=== PATIENT | male | born 1965 | race Two or more races ===

== ENCOUNTER 2017-12-27 13:00 | Inpatient (IN) | payer OTHER ==
[2017-12-27 14:33] VITALS: BMI 29.7
--- NOTE | 2017-12-27 15:26 | HP ---
CIWA Score - CIWA Score Nausea/Vomitin Muscle Tremors: 2 Anxiety: 2 Agitation: 1-Slight > Activity Paroxysmal Sweats: No Perspiration Orientation: 2-Disoriented Date<2 days Tacttile Disturbances: 0-None Auditory Disturbances: 0-None Visual Disturbances: 0-None Headache: 3-Moderate CIWA-Ar Total Score: 12 Admission [facility] Chief Complaint: ETOH withdrawal symptoms. Allergies/Adverse Reactions: Allergies Allergy/AdvReac Type Severity Reaction Status Date / Time No Known Allergies Allergy Verified 02/24/15 14:42 History of Present Illness: Patient presents [facility] ETOH withdrawal symptoms. Patient treated for Opiod addiction with Suboxone but patient states he has not taken medication x one month. Last prescription verified in [facility] #[id number] Suboxone 8mg #60. Patient state he only took 1/2 of a percocet last night but denies abusing medication. Patient started drinking x 7 years. States he has been binging on ETOH x 3 days non-stop. Has drank up to 3 pints of Vodka daily. Denies history of seizures. PMH includes depression, anxiety and elevated BP (untreated with daily medication). Denies SI/HI and suicide attempts. Went to [facility] ER 3 days ago and referred to [facility] for treatment. This is patients first time for detox here at [facility]. Exam Limitations: Intoxication - Ebola screening Have you traveled outside of the country in the last 21 days: No Have you had contact with anyone from an Ebola affected area: No Have you been sick,other than usual withdrawal symptoms: No Do you have a fever: No - Review of Systems Constitutional: Night Sweats, Changes in sleep EENT: reports: Blurred Vision (+blurry vision with close vision) Respiratory: reports: No Symptoms reported Cardiac: reports: No Symptoms Reported GI: reports: Diarrhea, Nausea, Poor Fluid Intake, Abdominal cramping : reports: Frequency Musculoskeletal: reports: Back Pain, Joint Pain Integumentary: reports: Erythema, Sweating Neuro: reports: Headache, Tremors Endocrine: reports: Increased Urine Hematology: reports: No Symptoms Reported Psychiatric: reports: Anxious, Depressed Patient History - Patient Medical History Hx Anemia: No Hx Asthma: No Hx Chronic Obstructive Pulmonary Disease (COPD): No Hx Cancer: No Hx Cardiac Disorders: No Hx Congestive Heart Failure: No Hx Hypertension: No Hx Hypercholesterolemia: No Hx Pacemaker: No HX Cerebrovascular Accident: No Hx Seizures: No Hx Dementia: No Hx Diabetes: No Hx Gastrointestinal Disorders: Yes (GERD- ON NEXIUM) Hx Liver Disease: No Hx Genitourinary Disorders: No Hx Sexually Transmitted Disorders: No Hx Renal Disease (ESRD): No Hx Thyroid Disease: No Hx Human Immunodeficiency Virus (HIV): No (NEGATIVE HX) Hx Hepatitis C: No Hx Depression: Yes (ON MEDS) Hx Suicide Attempt: No Hx Bipolar Disorder: No Hx Schizophrenia: No - Patient Surgical History Past Surgical History: No Hx Neurologic Surgery: No Hx Cataract Extraction: No Hx Cardiac Surgery: No Hx Lung Surgery: No Hx Breast Surgery: No Hx Breast Biopsy: No Hx Abdominal Surgery: No Hx Appendectomy: No Hx Cholecystectomy: No Hx Genitourinary Surgery: No Hx Orthopedic Surgery: No Anesthesia Reaction: No - PPD History Documented Results: Negative w/o proof Date: 02/26/15 PPD to be Administered?: Yes - Smoking Cessation Smoking history: Current every day smoker Have you smoked in the past 12 months: Yes Aproximately how many cigarettes per day: 20 Hx Chewing Tobacco Use: No Initiated information on smoking cessation: Yes 'Breaking Loose' booklet given: 12/27/17 - Substance & Tx. History Hx Alcohol Use: Yes Hx Substance Use: No Substance Use Type: Alcohol Hx Substance Use Treatment: Yes - Substances Abused Alcohol Route: Oral Frequency: Daily Amount used: 3 pints Age of first use: 45 Date of Last Use: 12/27/17 Family Disease History - Family Disease History Family Disease History: Diabetes: Grandparent (), Sister (alive ) Admission Physical Exam S - Vital Signs Vital Signs: Vital Signs - 24 hr 12/27/17 14:27 Temperature 97.6 F Pulse Rate 105 H Respiratory 21 Rate Blood Pressure 130/86 - Physical General Appearance: Yes: Appropriately Dressed, Alcohol on Breath, Intoxicated, Tremorous, Sweating, Anxious HEENTM: Yes: EOMI, Hearing grossly Normal, Normal ENT Inspection, Normocephalic , Normal Voice, BENITA, Pharynx Normal Respiratory: Yes: Chest Non-Tender, Lungs Clear, Normal Breath Sounds, No Respiratory Distress, No Accessory Muscle Use Neck: Yes: No masses,lesions,Nodules, Supple Breast: Yes: Breast Exam Deferred Cardiology: Yes: Regular Rhythm, Regular Rate, S1, S2 Abdominal: Yes: Normal Bowel Sounds, Non Tender, Soft Genitourinary: Yes: Frequency Back: Yes: Normal Inspection, Muscle Spasm Musculoskeletal: Yes: full range of Motion, Back pain, Muscle Pain Extremities: Yes: Normal Inspection, Normal Range of Motion, Non-Tender, Tremors , Swelling Neurological: Yes: satellite specialist II-XII NML intact, Alert, Motor Strength 5/5, Depressed Affect Integumentary: Yes: Warm, Erythema, Moist Lymphatic: Yes: Within Normal Limits - Diagnostic (1) Depressed affect Current Visit: Yes Status: Suspected (2) Anxiety Current Visit: Yes Status: Suspected (3) Alcohol dependence with uncomplicated withdrawal Current Visit: Yes Status: Acute (4) Nicotine dependence Current Visit: Yes Status: Chronic Qualifiers: Nicotine product type: cigarettes Substance use status: uncomplicated Qualified Code(s): F17.210 - Nicotine dependence, cigarettes, uncomplicated Cleared for Admission [facility] - Detox or Rehab [facility] Level of Care: Medically Managed Detox Regimen/Protocol: Librium [facility] Breath Alcohol Content Breath Alcohol Content: 0.135 Urine Drug Screen - Results Drug Screen Negative: No Urine Drug Screen Results: BZO-Benzodiazepines, OXY-Oxycodone
[2017-12-27] MEDS ORDERED: MAGNESIUM HYDROX 2400MG/30ML ORAL SUSPENSION 30 ML CUP PO PRN (15:34)
[2017-12-27] MEDS ORDERED: NICOTINE POLACRILEX 2 MG GUM BC PRN (15:34)
[2017-12-27] MEDS ORDERED: ACETAMINOPHEN 325 MG TABLET (FP) PO PRN (15:34)
[2017-12-27] MEDS ORDERED: LOPERAMIDE HCL 2 MG CAPSULE PO PRN (15:34)
[2017-12-27] MEDS ORDERED: MAGNESIUM CITRATE 300 ML BOTTLE PO PRN (15:34)
[2017-12-27] MEDS ORDERED: MENTHOL/PHENOL 1 EACH UD MM PRN (15:34)
[2017-12-27] MEDS ORDERED: IBUPROFEN 400 MG TABLET (FP) PO PRN (15:34)
[2017-12-27] MEDS ORDERED: MAG HYDROX/AL HYDROX/SIMETH 30 ML UNIT-DOSE CUP PO PRN (15:34)
[2017-12-27] MEDS ORDERED: guaiFENesin/D-METHORPHAN HB 10 ML UNIT-DOSE CUPS PO PRN (15:34)
[2017-12-27] MEDS ORDERED: hydrOXYzine PAMOATE 25 MG CAPSULE (FP) PO PRN (15:34)
[2017-12-27] MEDS ORDERED: P-EPHED 60MG/TRIPROLIDI 2.5MG TABLET PO PRN (15:34)
[2017-12-27] MEDS ORDERED: chlordiazePOXIDE HCL 25 MG CAPSULE PO PRN (15:36)
[2017-12-27] MEDS ORDERED: MELATONIN 5 MG TABLETS PO PRN (22:00)
[2017-12-27] MEDS: chlordiazePOXIDE HCL 25 MG CAPSULE PO SCH ×2 (22:28)
[2017-12-27] MEDS: THIAMINE HCL 100 MG TABLET (FP) PO SCH (22:28)
[2017-12-28 03:38] LABS: URINE APPEARANCE CLEAR; URINE BILIRUBIN NEGATIVE (<2.0 mg/dL); URINE COLOR STRAW; URINE GLUCOSE (UA) NEGATIVE (NEGATIVE); URINE KETONE NEGATIVE (NEGATIVE); URINE LEUK ESTERASE TRACE (NEGATIVE); URINE NITRITE NEGATIVE (NEGATIVE); URINE PROTEIN NEGATIVE (NEGATIVE); URINE UROBILINOGEN NEGATIVE mg/dL (0.2-1.0)
[2017-12-28 03:41] LABS: EPI CELLS RARE /HPF (FEW)
[2017-12-28] MEDS: chlordiazePOXIDE HCL 25 MG CAPSULE PO SCH ×4 (05:52→22:11)
[2017-12-28] MEDS: NICOTINE 21 MG/24 HOURS TOPICAL PATCH TD SCH (10:10)
[2017-12-28] MEDS: PRENATAL VITAMINS W/ FOLIC ACID TABLET (FP) PO SCH (10:10)
[2017-12-28 10:14] LABS: HEMOGLOBIN 15.2 GM/dL (11.7-16.9); MCH 30.3 pg (25.7-33.7); MCHC 33.1 g/dl (32.0-35.9); MEAN CELL VOLUME 91.4 fl (80-96); MEAN PLT VOLUME 9.2 fl (7.5-11.1); PLATELET COUNT 263 K/MM3 (134-434); RBC 5.03 M/mm3 (4.00-5.60); RDW 14.3 % (11.9-15.9); WHITE BLOOD COUNT 5.3 K/mm3 (4.0-10.0)
[2017-12-28 10:43] LABS: ALBUMIN 3.6 g/dl (3.4-5.0); ALK PHOS 66 U/L (45-117); ANION GAP 9 MMOL/L (8-16); BILIRUBIN,TOTAL 0.8 mg/dL (0.2-1); BLOOD UREA NITROGEN 11 mg/dL (7-18); CALCIUM 8.7 mg/dL (8.5-10.1); CHLORIDE 103 mmol/L (98-107); CO2 28 mmol/L (21-32); CREATININE 0.8 mg/dL (0.55-1.3); GLUCOSE,RANDOM 88 mg/dL (74-106); POTASSIUM 4.6 mmol/L (3.5-5.1); SGOT/AST 25 U/L (15-37); SGPT/ALT 41 U/L (13-61); SODIUM 141 mmol/L (136-145); TOT PROT 7.2 g/dl (6.4-8.2)
--- NOTE | 2017-12-28 12:09 | EKG ---
Test Reason : Blood Pressure : / mmHG Vent. Rate : 087 BPM Atrial Rate : 087 BPM P-R Int : 158 ms QRS Dur : 074 ms QT Int : 376 ms P-R-T Axes : 037 -02 025 degrees QTc Int : 452 ms NORMAL SINUS RHYTHM NORMAL ECG NO PREVIOUS ECGS AVAILABLE Confirmed by CHRISSY NEAL, ILSA ([id number]) on 12/28/2017 12:09:25 PM Referred By: Confirmed By:ILSA LOWE MD
--- NOTE | 2017-12-28 12:17 | CONSULT ---
[facility] Psychiatric Consult - Data Date of interview: 12/28/17 Admission source: [facility] Identifying data: Patient is a 52 year old single male, without children, unemployed, homeless, and is supported by food stamps. This is one of multiple admissions for patient. Pt. admitted to for alcohol dependence. Substance Abuse History: Smoking Cessation. Smoking history: Current every day smoker. Have you smoked in the past 12 months: Yes. Aproximately how many cigarettes per day: 20. Hx Chewing Tobacco Use: No. Initiated information on smoking cessation: Yes. 'Breaking Loose' booklet given: 12/27/17. - Substance & Tx. History. Hx Alcohol Use: Yes. Hx Substance Use: No. Substance Use Type : Alcohol. Hx Substance Use Treatment: Yes. - Substances Abused. Alcohol. Route: Oral. Frequency: Daily. Amount used: 3 pints. Age of first use: 45. Date of Last Use: 12/27/17 Medical History: GERD Psychiatric History: Patient's first psychiatric contact was in [place] in 1989 after endorsing auditory hallucinations while incarcerated (was prescribed haldol and cogentin). Patient reports multiple psychiatric hospitalizations, most recently at [facility] 3 weeks ago for command auditory hallucinations of voices telling him to kill himself. He is also known to [facility], and [facility]. Diagnosis of Schizophrenia. Outpatient psychiatric care is provided at [facility] in the [place]. He was prescribed haldol 5mg qhs and cogentin 1mg but states his medications were recently changed at [facility] to seroquel 200mg daily + 400mg qhs. Mr. Stephenson reports h/o PTSD secondary to his experience of seeing people murdered while in senior living. Patient reports multiple suicide attempts, most recently 3 weeks ago via cutting after endorsing command auditory hallucincations to kill himself. Pt. denies urges or thoughts to hurt himself. Physical/Sexual Abuse/Trauma History: denies. Mental Status Exam - Mental Status Exam Alert and Oriented to: Time, Place, Person Cognitive Function: Good Patient Appearance: Well Groomed Mood: Hopeful, Euthymic Affect: Mood Congruent Patient Behavior: Appropriate, Cooperative Speech Pattern: Appropriate Voice Loudness: Normal Thought Process: Intact, Goal Oriented Thought Disorder: Not Present Hallucinations: Denies Suicidal Ideation: Denies Homicidal Ideation: Denies Insight/Judgement: Poor Sleep: Poorly Appetite: Fair Muscle strength/Tone: Normal Gait/Station: Normal Psychiatric Findings - Problem List ([place] 1, 2,3) (1) Alcohol dependence with uncomplicated withdrawal Current Visit: Yes Status: Acute (2) Nicotine dependence Current Visit: Yes Status: Chronic Qualifiers: Nicotine product type: cigarettes Substance use status: uncomplicated Qualified Code(s): F17.210 - Nicotine dependence, cigarettes, uncomplicated (3) Schizophrenia Current Visit: Yes Status: Chronic Qualifiers: Schizophrenia type: undifferentiated schizophrenia Qualified Code(s): F20.3 - Undifferentiated schizophrenia - Initial Treatment Plan Initial Treatment Plan: Psychoeducation provided. Detoxification in progress. Seroquel 50mg daily + 100mg qhs (Pt. requesting lower dose due to risk of oversedation and noncompliance to medication in the last week). Benefits and side effects discussed. Verbal consent given. Will continue to monitor.
--- NOTE | 2017-12-28 12:20 | PN ---
S CIWA - CIWA Score Nausea/Vomitin-No Nausea/No Vomiting Muscle Tremors: 1-None Visible, but [place] Anxiety: 0-No Anxiety, at Ease Agitation: 0-Normal Activity Paroxysmal Sweats: No Perspiration Orientation: 0-Oriented Tacttile Disturbances: 0-None Auditory Disturbances: 0-None Visual Disturbances: 0-None Headache: 2-Mild CIWA-Ar Total Score: 3 BHS Progress Note (SOAP) Subjective: PATIENT PRESENTS WITH MILD TREMORS AND HEADACHE Objective: 12/28/17 12:18 Vital Signs Temperature 97.9 F 12/28/17 09:23 Pulse Rate 84 12/28/17 09:23 Respiratory Rate 18 12/28/17 09:23 Blood Pressure 109/60 12/28/17 09:23 O2 Sat by Pulse Oximetry (%) Laboratory Tests 12/27/17 12/28/17 12/28/17 23:23 07:00 07:00 WBC 5.3 RBC 5.03 Hgb 15.2 Hct 46.0 MCV 91.4 MCH 30.3 MCHC 33.1 RDW 14.3 Plt Count 263 MPV 9.2 Sodium 141 Potassium 4.6 Chloride 103 Carbon Dioxide 28 Anion Gap 9 BUN 11 Creatinine 0.8 Creat Clearance w eGFR > 60 Random Glucose 88 Calcium 8.7 Total Bilirubin 0.8 AST 25 ALT 41 Alkaline Phosphatase 66 Total Protein 7.2 Albumin 3.6 Urine Color Straw Urine Appearance Clear Urine pH 6.0 Ur Specific [place] 1.005 Urine Protein Negative Urine Glucose (UA) Negative Urine Ketones Negative Urine Blood Negative Urine Nitrite Negative Urine Bilirubin Negative Urine Urobilinogen Negative Ur Leukocyte Esterase Trace Urine WBC (Auto) 3 Urine RBC (Auto) <1 Ur Epithelial Cells Rare PE: SKIN WARM AND DRY CAR S1S2 RESP CTA BL GI SOFT BS+ NT EXT MILD TREMORS NEURO CN 1-X11 GROSSLY INTACT, +PERRLA Assessment: 12/28/17 12:19 ETOH WITHDRAWAL SYNDROME Plan: CONTINUE DETOX PER PROTOCOL ORAL FLUIDS ENCOURAGED
[2017-12-28] MEDS ORDERED: FLU VACCINE QUAD 60 MCG/0.5 ML (MDV 18-19) IM ONE ×2 (12:30→18:45)
[2017-12-28] MEDS: QUEtiapine FUMARATE 50 MG TABLET PO SCH (13:00)
[2017-12-28] MEDS: THIAMINE HCL 100 MG TABLET (FP) PO SCH (22:10)
[2017-12-28] MEDS: PRAZOSIN HCL 1 MG CAPSULE PO SCH (22:11)
[2017-12-28] MEDS: QUEtiapine FUMARATE 100 MG TABLET (FP) PO SCH (22:11)
[2017-12-29] MEDS: chlordiazePOXIDE HCL 25 MG CAPSULE PO SCH ×2 (05:39→10:08)
[2017-12-29] MEDS: PRENATAL VITAMINS W/ FOLIC ACID TABLET (FP) PO SCH (10:07)
[2017-12-29] MEDS: NICOTINE 21 MG/24 HOURS TOPICAL PATCH TD SCH (10:07)
[2017-12-29] MEDS: QUEtiapine FUMARATE 50 MG TABLET PO SCH (10:08)
--- NOTE | 2017-12-29 12:18 | PN ---
S CIWA - CIWA Score Nausea/Vomitin Muscle Tremors: 2 Anxiety: 2 Agitation: 2 Paroxysmal Sweats: 2 Orientation: 0-Oriented Tacttile Disturbances: 2-Mild Itch/Numbness/Burn Auditory Disturbances: 0-None Visual Disturbances: 1-Very Mild Sensitivity Headache: 1-Very Mild CIWA-Ar Total Score: 14 S Progress Note (SOAP) Subjective: Interrupted sleep, tremors and generalized pain Objective: 12/29/17 12:16 Vital Signs 12/29/17 12/29/17 06:00 10:11 Temperature 97.7 F 97.5 F L Pulse Rate 85 106 H Respiratory 18 18 Rate Blood Pressure 120/58 L 113/63 Laboratory Last Values WBC 5.3 K/mm3 (4.0-10.0) 12/28/17 07:00 RBC 5.03 M/mm3 (4.00-5.60) 12/28/17 07:00 Hgb 15.2 GM/dL (11.7-16.9) 12/28/17 07:00 Hct 46.0 % (35.4-49) 12/28/17 07:00 MCV 91.4 fl (80-96) 12/28/17 07:00 MCH 30.3 pg (25.7-33.7) 12/28/17 07:00 MCHC 33.1 g/dl (32.0-35.9) 12/28/17 07:00 RDW 14.3 % (11.9-15.9) 12/28/17 07:00 Plt Count 263 K/MM3 (134-434) 12/28/17 07:00 MPV 9.2 fl (7.5-11.1) 12/28/17 07:00 Sodium 141 mmol/L (136-145) 12/28/17 07:00 Potassium 4.6 mmol/L (3.5-5.1) 12/28/17 07:00 Chloride 103 mmol/L (98-107) 12/28/17 07:00 Carbon Dioxide 28 mmol/L (21-32) 12/28/17 07:00 Anion Gap 9 MMOL/L (8-16) 12/28/17 07:00 BUN 11 mg/dL (7-18) 12/28/17 07:00 Creatinine 0.8 mg/dL (0.55-1.3) 12/28/17 07:00 Creat Clearance w eGFR > 60 (>60) 12/28/17 07:00 Random Glucose 88 mg/dL (74-106) 12/28/17 07:00 Calcium 8.7 mg/dL (8.5-10.1) 12/28/17 07:00 Total Bilirubin 0.8 mg/dL (0.2-1) 12/28/17 07:00 AST 25 U/L (15-37) 12/28/17 07:00 ALT 41 U/L (13-61) 12/28/17 07:00 Alkaline Phosphatase 66 U/L (45-117) 12/28/17 07:00 Total Protein 7.2 g/dl (6.4-8.2) 12/28/17 07:00 Albumin 3.6 g/dl (3.4-5.0) 12/28/17 07:00 Urine Color Straw 12/27/17 23:23 Urine Appearance Clear 12/27/17 23:23 Urine pH 6.0 (5.0-8.0) 12/27/17 23:23 Ur Specific [place] 1.005 (1.001-1.035) 12/27/17 23:23 Urine Protein Negative (NEGATIVE) 12/27/17 23:23 Urine Glucose (UA) Negative (NEGATIVE) 12/27/17 23:23 Urine Ketones Negative (NEGATIVE) 12/27/17 23:23 Urine Blood Negative (NEGATIVE) 12/27/17 23:23 Urine Nitrite Negative (NEGATIVE) 12/27/17 23:23 Urine Bilirubin Negative (<2.0 mg/dL) 12/27/17 23:23 Urine Urobilinogen Negative mg/dL (0.2-1.0) 12/27/17 23:23 Ur Leukocyte Esterase Trace (NEGATIVE) 12/27/17 23:23 Urine WBC (Auto) 3 /hpf (3-5) 12/27/17 23:23 Urine RBC (Auto) <1 /hpf (0-3) 12/27/17 23:23 Ur Epithelial Cells Rare /HPF (FEW) 12/27/17 23:23 RPR Titer Nonreactive (NONREACTIVE) 12/28/17 07:00 HIV 1&2 Antibody Screen Negative 12/28/17 07:00 HIV P24 Antigen Negative 12/28/17 07:00 Labs noted Assessment: 12/29/17 12:16 Withdrawal sx Plan: Continue detox
[2017-12-29] MEDS: chlordiazePOXIDE 5 MG CAPSULE PO SCH ×2 (17:11→22:28)
[2017-12-29] MEDS: PANTOPRAZOLE 40 MG TABLET (FP) PO SCH (20:00)
[2017-12-29] MEDS: THIAMINE HCL 100 MG TABLET (FP) PO SCH (22:28)
[2017-12-29] MEDS: PRAZOSIN HCL 1 MG CAPSULE PO SCH (22:29)
[2017-12-29] MEDS: QUEtiapine FUMARATE 100 MG TABLET (FP) PO SCH (22:29)
[2017-12-30] MEDS: chlordiazePOXIDE 5 MG CAPSULE PO SCH ×2 (05:37→10:04)
[2017-12-30] MEDS: PRENATAL VITAMINS W/ FOLIC ACID TABLET (FP) PO SCH (09:52)
[2017-12-30] MEDS: NICOTINE 21 MG/24 HOURS TOPICAL PATCH TD SCH (09:52)
[2017-12-30] MEDS: QUEtiapine FUMARATE 50 MG TABLET PO SCH (09:52)
[2017-12-30] MEDS: PANTOPRAZOLE 40 MG TABLET (FP) PO SCH (09:52)
--- NOTE | 2017-12-30 16:57 | PN ---
B[facility] Progress Note (SOAP) Subjective: feeling better no tremor less sweat social with peers in day room Objective: 12/30/17 16:58 Vital Signs Temperature 97.7 F 12/30/17 16:48 Pulse Rate 109 H 12/30/17 16:48 Respiratory Rate 18 12/30/17 16:48 Blood Pressure 133/78 12/30/17 16:48 O2 Sat by Pulse Oximetry (%) Laboratory Last Values WBC 5.3 K/mm3 (4.0-10.0) 12/28/17 07:00 RBC 5.03 M/mm3 (4.00-5.60) 12/28/17 07:00 Hgb 15.2 GM/dL (11.7-16.9) 12/28/17 07:00 Hct 46.0 % (35.4-49) 12/28/17 07:00 MCV 91.4 fl (80-96) 12/28/17 07:00 MCH 30.3 pg (25.7-33.7) 12/28/17 07:00 MCHC 33.1 g/dl (32.0-35.9) 12/28/17 07:00 RDW 14.3 % (11.9-15.9) 12/28/17 07:00 Plt Count 263 K/MM3 (134-434) 12/28/17 07:00 MPV 9.2 fl (7.5-11.1) 12/28/17 07:00 Sodium 141 mmol/L (136-145) 12/28/17 07:00 Potassium 4.6 mmol/L (3.5-5.1) 12/28/17 07:00 Chloride 103 mmol/L (98-107) 12/28/17 07:00 Carbon Dioxide 28 mmol/L (21-32) 12/28/17 07:00 Anion Gap 9 MMOL/L (8-16) 12/28/17 07:00 BUN 11 mg/dL (7-18) 12/28/17 07:00 Creatinine 0.8 mg/dL (0.55-1.3) 12/28/17 07:00 Creat Clearance w eGFR > 60 (>60) 12/28/17 07:00 Random Glucose 88 mg/dL (74-106) 12/28/17 07:00 Calcium 8.7 mg/dL (8.5-10.1) 12/28/17 07:00 Total Bilirubin 0.8 mg/dL (0.2-1) 12/28/17 07:00 AST 25 U/L (15-37) 12/28/17 07:00 ALT 41 U/L (13-61) 12/28/17 07:00 Alkaline Phosphatase 66 U/L (45-117) 12/28/17 07:00 Total Protein 7.2 g/dl (6.4-8.2) 12/28/17 07:00 Albumin 3.6 g/dl (3.4-5.0) 12/28/17 07:00 Urine Color Straw 12/27/17 23:23 Urine Appearance Clear 12/27/17 23:23 Urine pH 6.0 (5.0-8.0) 12/27/17 23:23 Ur Specific [place] 1.005 (1.001-1.035) 12/27/17 23:23 Urine Protein Negative (NEGATIVE) 12/27/17 23:23 Urine Glucose (UA) Negative (NEGATIVE) 12/27/17 23:23 Urine Ketones Negative (NEGATIVE) 12/27/17 23:23 Urine Blood Negative (NEGATIVE) 12/27/17 23:23 Urine Nitrite Negative (NEGATIVE) 12/27/17 23:23 Urine Bilirubin Negative (<2.0 mg/dL) 12/27/17 23:23 Urine Urobilinogen Negative mg/dL (0.2-1.0) 12/27/17 23:23 Ur Leukocyte Esterase Trace (NEGATIVE) 12/27/17 23:23 Urine WBC (Auto) 3 /hpf (3-5) 12/27/17 23:23 Urine RBC (Auto) <1 /hpf (0-3) 12/27/17 23:23 Ur Epithelial Cells Rare /HPF (FEW) 12/27/17 23:23 RPR Titer Nonreactive (NONREACTIVE) 12/28/17 07:00 HIV 1&2 Antibody Screen Negative 12/28/17 07:00 HIV P24 Antigen Negative 12/28/17 07:00 lab noted Assessment: 12/30/17 16:58 mild withdrawal sx Plan: medically supervised detox
[2017-12-30] MEDS: chlordiazePOXIDE HCL 10 MG CAPSULE PO SCH ×2 (17:26→22:16)
[2017-12-30] MEDS: PRAZOSIN HCL 1 MG CAPSULE PO SCH (22:16)
[2017-12-30] MEDS: THIAMINE HCL 100 MG TABLET (FP) PO SCH (22:16)
[2017-12-30] MEDS: QUEtiapine FUMARATE 100 MG TABLET (FP) PO SCH (22:16)
[2017-12-31] MEDS: chlordiazePOXIDE HCL 10 MG CAPSULE PO SCH (05:41)
[2017-12-31 09:18] VITALS: BP 124/75; PULSE 96; TEMP 99.9
[2017-12-31] MEDS: PRENATAL VITAMINS W/ FOLIC ACID TABLET (FP) PO SCH (09:25)
[2017-12-31] MEDS: NICOTINE 21 MG/24 HOURS TOPICAL PATCH TD SCH (09:25)
[2017-12-31] MEDS: PANTOPRAZOLE 40 MG TABLET (FP) PO SCH (09:25)
[2017-12-31] MEDS: QUEtiapine FUMARATE 50 MG TABLET PO SCH (09:25)
--- NOTE | 2017-12-31 13:28 | DS ---
[facility] Detox Discharge Summary Admission Date: 12/27/17 Discharge Date: 12/31/17 - History Present History: Alcohol Dependence Additional Comments: Admitted with history of alcohol use disorder beginning at age 45 and c/o withdrawal symptoms. - Physical Exam Results Vital Signs: Vital Signs Temperature 99.9 F H 12/31/17 09:17 Pulse Rate 96 H 12/31/17 09:17 Respiratory Rate 18 12/31/17 09:17 Blood Pressure 124/75 12/31/17 09:17 O2 Sat by Pulse Oximetry (%) Pertinent Admission Physical Exam Findings: Admitted with alcohol withdrawal symptoms. Laboratory Last Values WBC 5.3 K/mm3 (4.0-10.0) 12/28/17 07:00 RBC 5.03 M/mm3 (4.00-5.60) 12/28/17 07:00 Hgb 15.2 GM/dL (11.7-16.9) 12/28/17 07:00 Hct 46.0 % (35.4-49) 12/28/17 07:00 MCV 91.4 fl (80-96) 12/28/17 07:00 MCH 30.3 pg (25.7-33.7) 12/28/17 07:00 MCHC 33.1 g/dl (32.0-35.9) 12/28/17 07:00 RDW 14.3 % (11.9-15.9) 12/28/17 07:00 Plt Count 263 K/MM3 (134-434) 12/28/17 07:00 MPV 9.2 fl (7.5-11.1) 12/28/17 07:00 Sodium 141 mmol/L (136-145) 12/28/17 07:00 Potassium 4.6 mmol/L (3.5-5.1) 12/28/17 07:00 Chloride 103 mmol/L (98-107) 12/28/17 07:00 Carbon Dioxide 28 mmol/L (21-32) 12/28/17 07:00 Anion Gap 9 MMOL/L (8-16) 12/28/17 07:00 BUN 11 mg/dL (7-18) 12/28/17 07:00 Creatinine 0.8 mg/dL (0.55-1.3) 12/28/17 07:00 Creat Clearance w eGFR > 60 (>60) 12/28/17 07:00 Random Glucose 88 mg/dL (74-106) 12/28/17 07:00 Calcium 8.7 mg/dL (8.5-10.1) 12/28/17 07:00 Total Bilirubin 0.8 mg/dL (0.2-1) 12/28/17 07:00 AST 25 U/L (15-37) 12/28/17 07:00 ALT 41 U/L (13-61) 12/28/17 07:00 Alkaline Phosphatase 66 U/L (45-117) 12/28/17 07:00 Total Protein 7.2 g/dl (6.4-8.2) 12/28/17 07:00 Albumin 3.6 g/dl (3.4-5.0) 12/28/17 07:00 Urine Color Straw 12/27/17 23:23 Urine Appearance Clear 12/27/17 23:23 Urine pH 6.0 (5.0-8.0) 12/27/17 23:23 Ur Specific [place] 1.005 (1.001-1.035) 12/27/17 23:23 Urine Protein Negative (NEGATIVE) 12/27/17 23:23 Urine Glucose (UA) Negative (NEGATIVE) 12/27/17 23:23 Urine Ketones Negative (NEGATIVE) 12/27/17 23:23 Urine Blood Negative (NEGATIVE) 12/27/17 23:23 Urine Nitrite Negative (NEGATIVE) 12/27/17 23:23 Urine Bilirubin Negative (<2.0 mg/dL) 12/27/17 23:23 Urine Urobilinogen Negative mg/dL (0.2-1.0) 12/27/17 23:23 Ur Leukocyte Esterase Trace (NEGATIVE) 12/27/17 23:23 Urine WBC (Auto) 3 /hpf (3-5) 12/27/17 23:23 Urine RBC (Auto) <1 /hpf (0-3) 12/27/17 23:23 Ur Epithelial Cells Rare /HPF (FEW) 12/27/17 23:23 RPR Titer Nonreactive (NONREACTIVE) 12/28/17 07:00 HIV 1&2 Antibody Screen Negative 12/28/17 07:00 HIV P24 Antigen Negative 12/28/17 07:00 Labs reviewed. - Treatment Hospital Course: Detox Protocol Followed, Detoxed Safely, Responded well, Discharged Condition Good, Rehab Referral Accepted - Medication Discharge Medications: Ambulatory Orders Esomeprazole Mag Trihydrate [Nexium] 20 mg PO DAILY 02/24/15 Quetiapine Fumarate [Seroquel -] 400 mg PO HS 12/27/17 Quetiapine Fumarate [Seroquel] 100 mg PO DAILY 12/27/17 Prazosin HCl 1 mg PO HS 12/28/17 - Diagnosis (1) Alcohol dependence with uncomplicated withdrawal Status: Acute (2) GERD (gastroesophageal reflux disease) Status: Chronic Qualifiers: Esophagitis presence: esophagitis presence not specified Qualified Code(s) : K21.9 - Gastro-esophageal reflux disease without esophagitis (3) Nicotine dependence Status: Chronic Qualifiers: Nicotine product type: cigarettes Substance use status: uncomplicated Qualified Code(s): F17.210 - Nicotine dependence, cigarettes, uncomplicated - AMA Did Patient Leave Against Medical Advice: No
== END 2017-12-31 10:26 | disposition home or self-care (01) | DRG 774 ==
LOC: YASAS 13:00 → Y6N 17:45
PROC: HZ2ZZZZ Detoxification Services for Substance Abuse Treatment (ICD-10-PCS; principal; 2017-12-27)
DX: F10.230 Alcohol dependence with withdrawal, uncomplicated (principal); F14.20 Cocaine dependence, uncomplicated; F17.210 Nicotine dependence, cigarettes, uncomplicated; F20.3 Undifferentiated schizophrenia; F32.9 Major depressive disorder, single episode, unspecified; F41.9 Anxiety disorder, unspecified; K21.9 Gastro-esophageal reflux disease without esophagitis; R45.89 Other symptoms and signs involving emotional state; Z91.5 Personal history of self-harm
CPT/HCPCS: 36415; 80053; 81003; 81015; 85027; 86593; 87389; 90688; 93005; 93010; G0008